=== PATIENT | female | born 2000 | race Caucasian/White ===

== ENCOUNTER 2019-12-29 22:35 | Emergency (ER) | payer OTHER, SELFPAY ==
--- NOTE | 2019-12-29 22:39 | PC.NURSE ---
Before pt came to triage she was able to get the ring off her finger that she came to get off. Pt left Ed w/o triage.
== END 2019-12-29 23:10 | disposition left against medical advice (07) ==
PROVIDERS: PCP Family Medicine
DX: Z53.1 Procedure and treatment not carried out because of patient's decision for reasons of belief and group pressure (principal)
CPT/HCPCS: 99199

== ENCOUNTER 2020-10-31 19:09 | Emergency (ER) | payer OTHER, SELFPAY ==
[2020-10-31 19:12] VITALS: BP 114/82; PULSE 94; RESP 18; TEMP 36.5; O2SAT 99
--- NOTE | 2020-10-31 20:21 | ED.GENADULT ---
HPI - General Adult General Chief complaint: Unspecified Stated complaint: hemorroids Time Seen by Provider: 10/31/20 19:49 History of Present Illness HPI narrative: Patient 1-year-old female presents the emergency department chief complaint of rectal pain. Patient reports that she has had hemorrhoids and has seen her primary care physician that she was unable to tolerate steroid topical administration previously states she is supposed to see a GI doctor for these symptoms at [facility] but has been unable to schedule an appointment. Patient states that it hurts whenever she defecates denies bleeding Related Data Allergies Allergy/AdvReac Type Severity Reaction Status Date / Time escitalopram Allergy Unknown Unknown Verified 10/31/20 19:15 Review of Systems Review of Systems: Narrative: A 10 system review of systems was completed on the patient and is negative except for what is stated in the HPI. Nursing and ancillary documentation was reviewed. FORMERLY [facility], [facility]–1983 Past Medical History Medical History BMI 21.0-21.9, adult Body mass index [BMI] 22.0-22.9, adult Constipation Family History Family History Grandparent Hypertension Family history of lung cancer Diabetes mellitus Social History Social History Smoking status: Never smoker Second hand tobacco smoke exposure: No Alcohol intake: current Substance use: never Gender identity (if verbalized by the patient): Female Sexual Orientation (if Verbalized by the Patient): Straight or Heterosexual Exam Narrative: Exam Narrative: GENERAL: Well-appearing, well-nourished, and in no acute distress. HEAD: Normocephalic, atraumatic. EYES: PERRLA and EOMI. ENT: Nares clear, no rhinorrhea or epistaxis. Mucous membranes moist. NECK: Supple. CHEST: Clear to auscultation. No respiratory distress. HEART: Regular rate and rhythm. No murmur heard. Normal peripheral pulses. ABDOMEN: Soft, nontender, nondistended, normal active bowel sounds. : There is a hemorrhoid present and skin tag present EXTREMITIES: Normal range of motion. No edema. SKIN: Warm, dry, no rash. NEURO: No focal deficits. Alert and oriented x3. PSYCH: Normal mood and affect. Course Vital Signs Vital signs: Vital Signs Temperature 36.5 C 10/31/20 19:12 Pulse Rate 94 10/31/20 19:12 Respiratory Rate 18 10/31/20 19:12 Blood Pressure 114/82 10/31/20 19:12 Pulse Oximetry 99 10/31/20 19:12 Temperature 36.5 C 10/31/20 19:12 Pulse Rate 94 10/31/20 19:12 Respiratory Rate 18 10/31/20 19:12 Blood Pressure 114/82 10/31/20 19:12 Pulse Oximetry 99 10/31/20 19:12 Medical Decision Making Vital Signs Vital Signs: Vital Signs Temperature 36.5 C 10/31/20 19:12 Pulse Rate 94 10/31/20 19:12 Respiratory Rate 18 10/31/20 19:12 Blood Pressure 114/82 10/31/20 19:12 Pulse Oximetry 99 10/31/20 19:12 Temperature 36.5 C 10/31/20 19:12 Pulse Rate 94 10/31/20 19:12 Respiratory Rate 18 10/31/20 19:12 Blood Pressure 114/82 10/31/20 19:12 Pulse Oximetry 99 10/31/20 19:12 Discharge Plan Discharge Clinical Impression: Hemorrhoids Patient Disposition: Home, Self-Care Condition: Stable Instructions: Antibiotic Form, Hemorrhoids (ED), Sitz Bath (DC) Prescriptions: New Proctofoam HC 1-1 % foam 1 applic RECTAL QID PRN (Reason: hemorrhoids) Qty: 10 RF: 0 No Action fluconazole [Diflucan] 150 mg tablet 150 mg PO ONCE Qty: 1 RF: 0 Ortho-Novum (28) 1-35 mg-mcg tablet 1 tablet PO DAILY Qty: 28 RF: 0 paroxetine HCl [Paxil] 10 mg tablet 10 mg PO DAILY Qty: 30 RF: 2 valacyclovir [Valtrex] 1 gram tablet 1,000 mg PO DAILY Qty: 90 RF: 0 cholecalciferol (vitamin D3) 1,250 mcg (50,000 unit) capsule 1,250 mcg PO WE
== END 2020-10-31 20:34 | disposition home or self-care (01) ==
PROVIDERS: Emergency Provider Emergency Medicine; PCP Family Medicine
DX: K64.9 Unspecified hemorrhoids (principal)
CPT/HCPCS: 99283

== ENCOUNTER → 2022-02-18 14:16 | Outpatient (CLI) | payer OTHER, SELFPAY ==
--- NOTE | ~2022-02-18 | US_ITS ---
EXAMINATION: US thyroid DATE: 02/18/2022 14:34 INDICATION: Thyroid enlargement. Other specified disorders of thyroid. TECHNIQUE: Multiple ultrasound images of the thyroid were obtained. COMPARISON: None. FINDINGS: The right thyroid lobe measures 4.5 x 1.2 x 1.4 cm. The left thyroid lobe measures 4.0 x 1.3 x 1.6 c m. There are 4 mm and 3 mm nodules in right thyroid lobe. There is a 4 mm nodule in left thyroid lob e. IMPRESSION: 1. Small thyroid nodules, likely not clinically significant. No follow-up is needed. Reviewed, dictated and finalized at location A. IMPRESSION: 1. Small thyroid nodules, likely not clinically significant. No follow-up is ne eded.
== END ==
PROVIDERS: PCP Family Medicine; Visit Provider Physician Assistant Medical
DX: E04.2 Nontoxic multinodular goiter (principal)
CPT/HCPCS: 76536